=== PATIENT | male | born 1965 | race Caucasian/White ===

== ENCOUNTER 2016-04-10 22:13 | Emergency (ER) | payer OTHER ==
[2016-04-10] MEDS ORDERED: TORAdol 30 mg Injection IM ONE (22:46)
[2016-04-10] MEDS ORDERED: TORAdol 30 mg Injection ONE (22:52)
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
[2016-04-11] MEDS ORDERED: NORCO 5/325 MG PO ONE (01:10)
[2016-04-11] MEDS ORDERED: NORCO 5/325 MG ONE (01:20)
[2016-04-11 01:36] VITALS: BP 130/86; PULSE 86; O2SAT 98
--- NOTE | 2016-04-11 09:37 | XRAY ---
Indication: Right femur pain. Comparison: None 2 views of the right femur obtained. No bony, articular, or soft tissue abnormalities.
--- NOTE | 2016-04-11 09:37 | XRAY ---
Indication: Right femur pain. Comparison: None Single AP pelvis obtained. No bony, articular, or soft tissue abnormalities.
== END 2016-04-11 01:48 | disposition home or self-care (01) ==
LOC: ED 22:13
DX: M25.551 Pain in right hip (principal); M79.651 Pain in right thigh; T14.8 Other injury of unspecified body region; M79.1 Myalgia; X50.0XXA Overexertion from strenuous movement or load, initial encounter
CPT/HCPCS: 72170; 73552; 96372; 99283; J1885

== ENCOUNTER 2017-03-08 14:50 | Emergency (ER) | payer MEDICAID, OTHER ==
[2017-03-08 15:02] VITALS: BP 161/94; PULSE 98; O2SAT 96
[2017-03-08] MEDS ORDERED: TORAdol 30 mg Injection IM ONE (15:18)
[2017-03-08] MEDS ORDERED: NORCO 5/325 MG PO ONE (15:18)
[2017-03-08] MEDS ORDERED: TORAdol 30 mg Injection ONE (15:20)
[2017-03-08] MEDS ORDERED: NORCO 5/325 MG ONE (15:20)
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
== END 2017-03-08 16:17 | disposition home or self-care (01) ==
LOC: ED 14:50
DX: M54.42 Lumbago with sciatica, left side (principal); G89.29 Other chronic pain; I10 Essential (primary) hypertension
CPT/HCPCS: 96372; 99283; J1885; A9270-GY

== ENCOUNTER 2017-09-26 17:15 | Emergency (ER) | payer OTHER ==
[2017-09-26 17:52] VITALS: BP 146/91; PULSE 97; O2SAT 97
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
[2017-09-26] MEDS ORDERED: DECADRON 10MG INJ. IM ONE (18:14)
[2017-09-26] MEDS ORDERED: TORAdol 30 mg Injection IM ONE (18:14)
[2017-09-26] MEDS ORDERED: TORAdol 30 mg Injection ONE (18:33)
[2017-09-26] MEDS ORDERED: DECADRON 10MG INJ. ONE (18:33)
== END 2017-09-26 18:56 | disposition home or self-care (01) ==
LOC: ED 17:15
DX: M62.830 Muscle spasm of back (principal); M54.5 Low back pain; X50.0XXA Overexertion from strenuous movement or load, initial encounter
CPT/HCPCS: 96372; 99283; J1100; J1885

== ENCOUNTER 2017-10-13 14:32 | Emergency (ER) | payer OTHER ==
[2017-10-13] MEDS ORDERED: Norflex 60 MG/2 ML IM ONE (15:00)
[2017-10-13] MEDS ORDERED: TORAdol 30 mg Injection IM ONE (15:00)
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
[2017-10-13] MEDS ORDERED: Norflex 60 MG/2 ML ONE (15:12)
[2017-10-13] MEDS ORDERED: TORAdol 30 mg Injection ONE (15:12)
[2017-10-13 15:33] VITALS: BP 126/84; PULSE 92; O2SAT 98
== END 2017-10-13 15:35 | disposition home health service (06) ==
LOC: ED 14:32
DX: M54.42 Lumbago with sciatica, left side (principal); Z79.899 Other long term (current) drug therapy; G89.29 Other chronic pain
CPT/HCPCS: 96372; 99284; J1885; J2360

== ENCOUNTER 2019-02-12 14:24 | Emergency (ER) | payer OTHER ==
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
[2019-02-12 15:10] VITALS: BP 144/84; PULSE 108; O2SAT 98
== END 2019-02-12 16:32 | disposition left against medical advice (07) ==
LOC: ED 14:24
DX: R10.9 Unspecified abdominal pain (principal); I10 Essential (primary) hypertension
CPT/HCPCS: 99283

== ENCOUNTER 2019-09-04 16:25 | Emergency (ER) | payer OTHER ==
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
[2019-09-04] MEDS ORDERED: PERCOCET TABLET 5/325MG PO STA (17:17)
[2019-09-04] MEDS ORDERED: Ativan 0.5 MG PO ONE (17:19)
[2019-09-04] MEDS ORDERED: PERCOCET TABLET 5/325MG ONE (17:25)
[2019-09-04] MEDS ORDERED: DELTASONE 20 MG ONE (17:25)
[2019-09-04] MEDS ORDERED: Ativan 1 MG ONE (17:26)
[2019-09-04 17:56] VITALS: BP 119/93; PULSE 95; O2SAT 97
--- NOTE | 2019-09-05 08:48 | XRAY ---
Indication: Low back pain radiating left leg following fall. Comparison: None 3 view lumbar spine demonstrates 5 lumbar vertebral segments in normal alignment with mild L3-S1 degenerative endplate spurring and mild disc space narrowing. No other bony, articular, or soft tissue abnormalities.
[2019-09-05] MEDS ORDERED: DELTASONE 20 MG PO ONE (17:18)
== END 2019-09-04 17:57 | disposition home or self-care (01) ==
LOC: ED 16:25
DX: M54.5 Low back pain (principal); G89.29 Other chronic pain; F45.42 Pain disorder with related psychological factors; M62.838 Other muscle spasm; W01.10XA Fall on same level from slipping, tripping and stumbling with subsequent striking against unspecified object, initial encounter; Y93.9 Activity, unspecified; Y92.89 Other specified places as the place of occurrence of the external cause; Z79.899 Other long term (current) drug therapy; I10 Essential (primary) hypertension; K75.9 Inflammatory liver disease, unspecified; F31.9 Bipolar disorder, unspecified; Z72.0 Tobacco use
CPT/HCPCS: 72100; 99284; A9270-GY

== ENCOUNTER 2021-08-28 09:21 | Emergency (ER) | payer OTHER ==
[2021-08-28] MEDS ORDERED: TORAdol 30 mg Injection IM ONE (09:51)
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
[2021-08-28] MEDS ORDERED: DECADRON 10MG INJ. IM ONE (09:52)
[2021-08-28] MEDS ORDERED: TORAdol 30 mg Injection ONE (09:55)
[2021-08-28] MEDS ORDERED: DECADRON 10MG INJ. ONE (09:55)
[2021-08-28 10:22] VITALS: BP 125/93; PULSE 91; O2SAT 95
== END 2021-08-28 10:57 | disposition home or self-care (01) ==
LOC: ED 09:21
DX: M54.12 Radiculopathy, cervical region (principal); M54.2 Cervicalgia; I10 Essential (primary) hypertension; E78.5 Hyperlipidemia, unspecified; Z72.0 Tobacco use; Z79.899 Other long term (current) drug therapy
CPT/HCPCS: 96372; 99283; J1100; J1885

== ENCOUNTER 2021-09-05 05:35 | Emergency (ER) | payer OTHER ==
[2021-09-05 05:53] VITALS: O2SAT 96
[2021-09-05] MEDS ORDERED: DECADRON 10MG INJ. IM ONE (06:17)
[2021-09-05] MEDS ORDERED: TORAdol 30 mg Injection IM ONE (06:18)
[2021-09-05] MEDS ORDERED: DECADRON 10MG INJ. ONE (06:22)
[2021-09-05] MEDS ORDERED: TORAdol 30 mg Injection ONE (06:22)
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
[2021-09-05 06:45] VITALS: BP 159/94; PULSE 94
== END 2021-09-05 06:42 | disposition home or self-care (01) ==
LOC: ED 05:35
DX: M54.12 Radiculopathy, cervical region (principal); M54.2 Cervicalgia; E78.5 Hyperlipidemia, unspecified; I10 Essential (primary) hypertension; Z72.0 Tobacco use; Z79.899 Other long term (current) drug therapy
CPT/HCPCS: 96372; 99284; J1100; J1885

== ENCOUNTER 2021-09-17 15:59 | Emergency (ER) | payer OTHER ==
[2021-09-17] MEDS ORDERED: Norflex 60 MG/2 ML IM ONE (16:36)
[2021-09-17] MEDS ORDERED: TORAdol 30 mg Injection IM ONE (16:36)
[2021-09-17] MEDS ORDERED: Norflex 60 MG/2 ML ONE (16:46)
[2021-09-17] MEDS ORDERED: TORAdol 30 mg Injection ONE (16:46)
[2021-09-17 17:07] VITALS: O2SAT 96
[2021-09-17 18:03] VITALS: BP 140/99; PULSE 98
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
== END 2021-09-17 18:10 | disposition home or self-care (01) ==
LOC: ED 15:59
DX: M54.2 Cervicalgia (principal); R51.9 Headache, unspecified; E78.5 Hyperlipidemia, unspecified; I10 Essential (primary) hypertension; Z72.0 Tobacco use; Z79.899 Other long term (current) drug therapy
CPT/HCPCS: 96372; 99284; J1885; J2360